=== PATIENT | male | born 1985 | race Caucasian/White ===

== ENCOUNTER 2018-08-02 15:11 | Emergency (ER) | payer SELFPAY ==
[~2018-08-02] VITALS: Ht 182.9 cm; Wt 94.6 kg
[2018-08-02] MEDS ORDERED: CEFTRIAXONE 1,000 MG ONE (16:01)
[2018-08-02] MEDS ORDERED: LIDOCAINE-MPF 1%, 5ML ONE (16:01)
[2018-08-02 16:20] VITALS: BP 141/86
[2018-08-02] MEDS ORDERED: CEFTRIAXONE 1,000 MG IM ONE (17:00)
== END 2018-08-02 16:22 | disposition home or self-care (01) ==
LOC: ED 16:06
DX: S60.221A Contusion of right hand, initial encounter (principal); L03.113 Cellulitis of right upper limb; F15.10 Other stimulant abuse, uncomplicated; F14.10 Cocaine abuse, uncomplicated; F12.10 Cannabis abuse, uncomplicated; F11.10 Opioid abuse, uncomplicated; F17.210 Nicotine dependence, cigarettes, uncomplicated; Z72.9 Problem related to lifestyle, unspecified; Z75.9 Unspecified problem related to medical facilities and other health care; W22.8XXA Striking against or struck by other objects, initial encounter; Y93.89 Activity, other specified; Y92.89 Other specified places as the place of occurrence of the external cause; Y99.8 Other external cause status
CPT/HCPCS: 29125; 73130; 96372; 99283; J0696

== ENCOUNTER 2018-08-03 10:46 | Emergency (ER) | payer SELFPAY ==
[~2018-08-03] VITALS: Ht 182.9 cm; Wt 94.1 kg
[2018-08-03 10:59] VITALS: BP 126/77
[2018-08-03] MEDS ORDERED: CEFTRIAXONE 1,000 MG ONE (11:41)
[2018-08-03] MEDS ORDERED: CEFTRIAXONE 1,000 MG IM ONE (12:00)
== END 2018-08-03 12:05 | disposition home or self-care (01) ==
LOC: ED 11:41
DX: L03.113 Cellulitis of right upper limb (principal); F17.200 Nicotine dependence, unspecified, uncomplicated
CPT/HCPCS: 29260; 96372; 99283; J0696